=== PATIENT | male | born 2000 | race Caucasian/White ===

== ENCOUNTER 2018-07-26 06:43 | Emergency (ER) | payer OTHER ==
[~2018-07-26] VITALS: Ht 175.3 cm; Wt 70.5 kg
[2018-07-26 06:43] VITALS: BP 136/63
[2018-07-26] MEDS ORDERED: TRIA1OI TOP (07:14)
[2018-07-26] MEDS ORDERED: PRED20TA PO (07:14)
== END 2018-07-26 07:24 | disposition home or self-care (01) ==
LOC: M ED 06:43
DX: R21 Rash and other nonspecific skin eruption (principal); F17.210 Nicotine dependence, cigarettes, uncomplicated

== ENCOUNTER 2019-04-15 21:33 | Emergency (ER) | payer OTHER ==
[~2019-04-15] VITALS: Ht 170.2 cm; Wt 62.5 kg
[~2019-04-15 21:33] MED LIST: PRED20TA PO; TRIA1OI TOP
[2019-04-15] MEDS ORDERED: AMOX500C PO (21:42)
[2019-04-16] MEDS ORDERED: diphenhydrAMINE INJ 50MG/ML VIAL (J1200) IV ONE (00:30)
[2019-04-16] MEDS ORDERED: PRED20TA PO (00:30)
[2019-04-16] MEDS ORDERED: BENA25CA4 PO (00:30)
[2019-04-16] MEDS ORDERED: dexameTHASONE 20 MG/5 ML VIAL (J1100) IV ONE (00:30)
[2019-04-16 01:15] VITALS: BP 104/52
== END 2019-04-16 01:17 | disposition home or self-care (01) ==
LOC: M ED 21:33
DX: R21 Rash and other nonspecific skin eruption (principal); T36.0X5A Adverse effect of penicillins, initial encounter; X58.XXXA Exposure to other specified factors, initial encounter; Y92.89 Other specified places as the place of occurrence of the external cause; Z88.0 Allergy status to penicillin
CPT/HCPCS: 96374; 96375; 99283; J1100; J1200

== ENCOUNTER 2020-12-10 23:09 | Inpatient (IN) | payer OTHER ==
[~2020-12-10] VITALS: Ht 170.2 cm; Wt 61.6 kg
[~2020-12-10 23:09] MED LIST changes: +AMOX500C PO; +BENA25CA4 PO
[2020-12-11 01:44] LABS: HEMATOCRIT 44.9 % (42.0-52.0); HEMOGLOBIN 15.7 g/dl (13.5-17.5); MEAN CORPUSCULAR HEMOGLOBIN 31.7 pg (27.0-33.0); MEAN CORPUSCULAR VOLUME 90.5 fl (80.0-96.0); PLATELET COUNT, AUTOMATED 240 10^3/uL (150-450); RED BLOOD COUNT 4.96 10^6/uL (4.30-6.10); WHITE BLOOD COUNT 16.4 10^3/uL (4.0-10.0)
[2020-12-11 02:05] LABS: AMPHETAMINES LEVEL URINE NEGATIVE (NEGATIVE); BARBITURATES URINE NEGATIVE (NEGATIVE); BENZODIAZEPINES URINE NEGATIVE (NEGATIVE); CANNABINOIDS URINE NEGATIVE (NEGATIVE); COCAINE METABOLITE URINE NEGATIVE (NEGATIVE); METHADONE URINE NEGATIVE (NEGATIVE); OPIATES URINE NEGATIVE (NEGATIVE); PHENCYCLIDINE URINE NEGATIVE (NEGATIVE)
[2020-12-11 02:17] LABS: RSV AMPLIFICATION NEGATIVE (NEGATIVE)
[2020-12-11 02:33] LABS: ACETAMINOPHEN LEVEL < 2.0 UG/ML (10.0-30.0); ALBUMIN 4.5 GM/DL (3.2-5.2); ALT/SGPT 22 U/L (12-78); BILIRUBIN,DIRECT 0.1 MG/DL (0.0-0.2); BILIRUBIN,TOTAL 0.5 MG/DL (0.2-1.0); BLOOD UREA NITROGEN 11 MG/DL (7-18); CALCIUM LEVEL 9.6 MG/DL (8.5-10.1); CARBON DIOXIDE LEVEL 26 MEQ/L (21-32); CHLORIDE LEVEL 107 MEQ/L (98-107); CREATININE FOR GFR 0.84 MG/DL (0.70-1.30); ETHYL ALCOHOL (ETHANOL) < 0.003 % (0.000-0.010); GLOMERULAR FILTRATION RATE > 60.0 (>60); GLUCOSE, FASTING 86 MG/DL (70-100); SALICYLATE LEVEL 1.9 MG/DL (5.0-30.0); SODIUM LEVEL 141 MEQ/L (136-145); TOTAL PROTEIN 7.7 GM/DL (6.4-8.2)
[2020-12-11] MEDS ORDERED: ACETAMINOPHEN TAB 650MG DOSE (2X325MG) PO PRN (03:40)
[2020-12-11] MEDS ORDERED: MAALOX 30 ML SUSP *UDC PO PRN (03:40)
[2020-12-11] MEDS ORDERED: MOM 30ML SUSPENSION UDC PO PRN (03:40)
[2020-12-11 08:28] VITALS: BP 126/57
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
[2020-12-11] MEDS ORDERED: SERTRALINE HCL 50 MG TAB PO SCH (10:00)
[2020-12-11] MEDS: SERTRALINE HCL 50 MG TAB PO SCH (10:40)
[2020-12-11] MEDS ORDERED: HOME MED LIST COMPLETE! XX SCH (11:40)
[2020-12-11 16:16] VITALS: BP 117/59
--- NOTE | 2020-12-11 18:19 | HPEPDOC ---
General Date of Admission Dec 11, 2020 at 03:39 Date of Service: Dec 11, 2020 Attending Physician: GUZMAN MEDRANO MD Chief Complaint The patient is a 20-year-old male admitted with a reason for visit of Unspecified Depressive Disorder. 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 ED workup was grossly normal with a reactive leukocytosis, with otherwise normal electrolytes, renal function and negative tox screen. Medicine is now consulted for an H&P. Home Medications No Active Prescriptions or Reported Meds Allergies Coded Allergies: amoxicillin (Verified Allergy, Intermediate, Hives, 04/16/19) Past Medical History Medical History Schizophrenia Surgical History None Social History * Smoker: Denies, current smoker Alcohol: Denies Drugs: denies Recent Travel/Sick Contacts: Denies: Recent travel, Recent sick contacts Psychosocial History: Schizophrenia, Suicidal thoughts Active with ongoing discharge process No alcohol No illicit drug use No smoking A-FIB/CHADSVASC A-FIB History Current/History of A-Fib/PAF?: No Current PO Anticoag Therapy: No Age/Risk Factor Scoring CHADSVASC: CHADSVASC Response (Comments) Value Age Risk Factor Age < 65 years old 0 Gender Risk Factor Male 0 Hx of CHF No 0 Hx of HTN No 0 Hx of Stroke/TIA/or VTE No 0 Hx of Diabetes No 0 Hx of Vascular Disease No 0 Total 0 Treatment Treatment ordered: NONE Reason Anticoagulant not given: Not indicated/[id number] Review of Systems Constitutional: Denies: Chills, Fever, Night Sweats Eyes: Denies: Pain, Vision change ENT: Denies: Head Aches, Ear Pain, Dysphagia Skin: Denies: Rash, Lesions, Breakdown Pulmonary: Denies: Dyspnea, Cough Cardiovascular: Denies: Chest Pain, Palpitations, Orthopnea, Paroxysmal Noc. Dyspnea, Lt Headedness Gastrointestinal: Denies: Nausea, Vomiting, Abdominal Pain, Diarrhea Genitourinary: Denies: Dysuria, Frequency, Incontinence, Retention Hematologic: Denies: Bruising, Bleeding Excessively Endocrine: Denies: Polydipsia, Polyphagia, Polyuria, Heat Intolerance, Cold Intolerance, Other Endocrine Sx Musculoskeletal: Denies: Neck Pain, Back Pain, Joint Pain, Muscle Pain, Spasms Neurological: Denies: Weakness, Numbness, Change in speech, Confusion Psych: Reports: Depression, Thoughts of Self Harm Physical Examination General Exam: Positive: Alert, No Acute Distress Eye Exam: Positive: PERRLA, Conjunctiva & lids normal, EOMI; Negative: Sclera icteric ENT Exam: Positive: Atraumatic, Mucous membr. moist/pink, Pharynx Normal Neck Exam: Positive: Supple; Negative: JVD, thyromegaly Chest Exam: Positive: Clear to auscultation, Normal air movement Heart Exam: Positive: Rate Normal, Regular Rhythm, Normal S1, Normal S2; Negative: Murmurs, Rubs Abdomen Exam: Positive: Normal bowel sounds, Soft; Negative: Tenderness, Hepatospenomegaly Extremity Exam: Positive: Normal pulses; Negative: Clubbing, Cyanosis, Edema Skin Exam: Positive: Nl turgor and temperature; Negative: Breakdown, Lesion Neuro Exam: Positive: Normal Gait, Normal Speech, Cranial Nerves 3-12 NL, Reflexes 2+ Psych Exam: Positive: Oriented x 3 Vital Signs Vital Signs Date Time Temp Pulse Resp B/P (MAP) Pulse Ox O2 Delivery O2 Flow Rate FiO2 12/11/20 08:28 99.2 103 18 126/57 (80) 97 12/11/20 08:17 Room Air Laboratory Data Labs 24H Laboratory Tests 2 12/11/20 01:25: Nucleated Red Blood Cells % (auto) 0.0, Anion Gap 8, Glomerular Filtration Rate > 60.0, Calcium Level 9.6, Total Bilirubin 0.5, Direct Bilirubin 0.1, Aspartate Amino Transf (AST/SGOT) 19, Alanine Aminotransferase (ALT/SGPT) 22, Alkaline Phosphatase 56, Total Protein 7.7, Albumin 4.5, Albumin/Globulin Ratio 1.4, Thyroid Stimulating Hormone (TSH) 2.790, Salicylates Level 1.9L, Urine Opiates Screen NEGATIVE, Urine Methadone Screen NEGATIVE, Acetaminophen Level < 2.0L, Urine Barbiturates Screen NEGATIVE, Urine Phencyclidine Screen NEGATIVE, Urine Amphetamines Screen NEGATIVE, Urine Benzodiazepines Screen NEGATIVE, Urine Cocaine Metabolite Screen NEGATIVE, Urine Cannabinoids Screen NEGATIVE, Ethyl Alcohol Level < 0.003, Coronavirus (COVID-19)(PCR) NEGATIVE, Influenza Type A (RT-PCR) NEGATIVE, Influenza Type B (RT-PCR) NEGATIVE, Respiratory Syncytial Virus (PCR) NEGATIVE CBC/BMP Laboratory Tests 12/11/20 01:25 Assessment/Plan 20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 Medicine is now consulted for an H&P. Suicide attempt i/s/o depression i/s/o decompensated schizophrenia as well as psychosocial stressors: -Plan per primary psych team He is otherwise physically well without medical complaints. I will sign off at this time. Please reconsult for any medical concerns. Plan / VTE VTE Prophylaxis Ordered?: No VTE Exclusion Mechanical Proph: Low Risk for VTE VTE Exclusion Pharmacological: At Low Risk for VTE GUZMAN MEDRANO MD Dec 11, 2020 12:53
[2020-12-11] MEDS: risperiDONE 2 MG TAB PO SCH (21:45)
[2020-12-11] MEDS: traZODone 50 MG TAB PO PRN (21:45)
[2020-12-12 06:20] VITALS: BP 117/56
[2020-12-12] MEDS: SERTRALINE HCL 50 MG TAB PO SCH (09:14)
[2020-12-12 09:44] LABS: CHOLESTEROL RISK RATIO 2.094 (<5)
--- NOTE | 2020-12-12 14:40 | MHIPNPDOC ---
[facility] Progress Note Progress Note DATE OF SERVICE: 12/12/20 HISTORY: 20-year-old male with a history of schizophrenia admitted after a suicidal gesture. Was found by his who called police and had him escorted to hospital for treatment. Multiple stressors in life including being off of his current medications as well as undergoing a divorce with . In the process of a medical discharge from the [employer] which is also been an increased stressor as he does not have strong family support and has utilized the [employer] as his primary purpose in life up until recently. Interval history: Was started on sertraline and risperidone upon admission, denies having any side effects to medications at present. Reports that he feels somewhat better and that his thoughts are a little bit clear. States that he continues to hear auditory hallucinations of 2 people talking to him but that they seem less intense than the past. Denies current suicidal ideation. Discussed whether or not he should be attending group and stated that he was nervous about the idea but appeared to be more reassured after discussing purposes of group and how they might be beneficial to him. Requesting when he may be discharged from the unit. VITAL SIGNS: See below. NEW TEST RESULTS: See below. CURRENT MEDICATIONS: See below. MENTAL STATUS EXAMINATION: Patient is a 20-year old male, who is dressed in hospital clothing and calmly seated in a chair. Speech: Is quiet, slowed, spontaneous in nature, with regular rhythm. Language skills are intact. Thought processes including: Linear and coherent. Thought content: Focused on wanting to leave, anxious about possibly attending groups while hospitalized. Abstract reasoning, and computation: Intact. Description of associations: Linear. Description of abnormal or psychotic thoughts: Continues to endorse auditory porras llucination but reports that they are improving. Judgment: Fair. Insight: Poor. Orientation: X3. Recent and remote memory: Intact. Attention span and concentration: Intact. Mood: "A little better I think". Affect: Blunted, appeared tired today, generally congruent to stated mood. DIAGNOSES: Unspecified psychotic disorder Rule out schizophrenia per history Unspecified trauma and stressor related disorder Tobacco use disorder ASSESSMENT: Appears to be improving at present, continues require hospitalization for stabilization. Due to recent initiation of medications would recommend at present that no further changes are made to allow him time to adjust to the medications, may consider an increase in sertraline on Monday or Monday if he continues to not experience side effects. MANAGEMENT PLAN: Continue medications as prescribed. TIME SPENT: 15 minutes. Vital Signs Vital Signs Date Time Temp Pulse Resp B/P (MAP) Pulse Ox O2 Delivery O2 Flow Rate FiO2 12/12/20 06:20 96.8 77 16 117/56 (76) 99 Room Air Laboratory Data 24H Labs Laboratory Tests 2 12/12/20 08:35: Triglycerides Level 61, Total Cholesterol 111, LDL Cholesterol 46, Non-HDL Cholesterol (LDL + VLDL) 58, Total HDL Cholesterol 53, Cholesterol/HDL Ratio 2.094 Current Medications Current Medications Medications (Trade) Dose Ordered Sig/Iwona Route PRN Reason Start Time Stop Time Status Last Admin Dose Admin Acetaminophen (Tylenol Tab) 650 mg Q6HP PRN PO HEADACHE or MILD DISCOMFORT 12/11/20 03:40 Al Hydrox/Mg Hydrox/Simethicone (Mylanta) 30 ml Q4HP PRN PO HEARTBURN/INDIGESTION 12/11/20 03:40 Home Med (Home Med List Complete!) ASDIRECTED XX 12/11/20 11:40 12/11/20 11:44 DC Magnesium Hydroxide (Milk Of Magnesia) 30 ml DAILYPRN PRN PO CONSTIPATION 12/11/20 03:40 Risperidone (RisperDAL) 2 mg QHS PO 12/11/20 21:00 12/11/20 21:45 Sertraline HCl (Zoloft) 50 mg DAILY PO 12/11/20 09:00 12/12/20 09:14 Sertraline HCl (Zoloft) 50 mg DAILY PO 12/11/20 10:00 Cancel Trazodone HCl (Desyrel) 50 mg QHSP PRN PO INSOMNIA 12/11/20 03:40 12/11/20 21:45 Allergies Coded Allergies: amoxicillin (Verified Allergy, Intermediate, Hives, 04/16/19) LYNN MARLEY MD Dec 12, 2020 14:40
[2020-12-12 16:33] VITALS: BP 129/65
[2020-12-12] MEDS: risperiDONE 2 MG TAB PO SCH (21:21)
[2020-12-13 06:00] VITALS: BP 122/69
[2020-12-13] MEDS: SERTRALINE HCL 50 MG TAB PO SCH (09:14)
--- NOTE | 2020-12-13 12:56 | MHIPNPDOC ---
[facility] Progress Note Progress Note DATE OF SERVICE: 12/13/20 HISTORY: 20-year-old male with a history of schizophrenia admitted after a suicidal gesture. Was found by his who called police and had him escorted to hospital for treatment. Multiple stressors in life including being off of his current medications as well as undergoing a divorce with . In the process of a medical discharge from the [employer] which is also been an increased stressor as he does not have strong family support and has utilized the [employer] as his primary purpose in life up until recently. Interval history: Reports improved mood today, states that he has been sleeping well. Attended one of the groups, states that was a painting group. This enjoyable I have spent time speaking with the watershed coordinator on [place] to. He remains hopeful about discharge early in the week, as looking forward to being released from the hospital. We discussed the auditory hallucinations he been having prior to admission, he states that those were last heard several months ago and not been more recent. He did not appear internally preoccupied or to have any sort of thought blocking while talking today. Overall he appears to be in good spirits and feels that the medications are helpful so far. VITAL SIGNS: See below. NEW TEST RESULTS: See below. CURRENT MEDICATIONS: See below. MENTAL STATUS EXAMINATION: Patient is a 20-year old male, who is dressed in hospital clothing, seen laying in bed, awoke readily when his name was called. Speech: Is quiet, slowed, spontaneous in nature, with regular rhythm. Language skills are intact. Thought processes including: Linear and coherent. Thought content: Found the groups for somewhat enjoyable, continues to be interested in when he will be able to leave the unit. Abstract reasoning, and computation: Intact. Description of associations: Linear. Description of abnormal or psychotic thoughts: Denies auditory hallucinations today Judgment: Fair. Insight: Poor. Orientation: X3. Recent and remote memory: Intact. Attention span and concentration: Intact. Mood: "I feel good, I even went to a group today". Affect: Blunted, appeared tired today, generally congruent to stated mood. DIAGNOSES: Unspecified psychotic disorder Rule out schizophrenia per history Unspecified trauma and stressor related disorder Tobacco use disorder ASSESSMENT: Appears to be improving at present, continues require hospitalization for stabilization. Due to recent initiation of medications would recommend at present that no further changes are made to allow him time to adjust to the medications, may consider an increase in sertraline on Monday or Monday if he continues to not experience side effects. MANAGEMENT PLAN: Continue medications as prescribed. TIME SPENT: 15 minutes. Vital Signs Vital Signs Date Time Temp Pulse Resp B/P (MAP) Pulse Ox O2 Delivery O2 Flow Rate FiO2 12/13/20 06:00 97.9 68 14 122/69 (86) 100 Room Air Current Medications Current Medications Medications (Trade) Dose Ordered Sig/Iwona Route PRN Reason Start Time Stop Time Status Last Admin Dose Admin Acetaminophen (Tylenol Tab) 650 mg Q6HP PRN PO HEADACHE or MILD DISCOMFORT 12/11/20 03:40 Al Hydrox/Mg Hydrox/Simethicone (Mylanta) 30 ml Q4HP PRN PO HEARTBURN/INDIGESTION 12/11/20 03:40 Home Med (Home Med List Complete!) ASDIRECTED XX 12/11/20 11:40 12/11/20 11:44 DC Magnesium Hydroxide (Milk Of Magnesia) 30 ml DAILYPRN PRN PO CONSTIPATION 12/11/20 03:40 Risperidone (RisperDAL) 2 mg QHS PO 12/11/20 21:00 12/12/20 21:21 Sertraline HCl (Zoloft) 50 mg DAILY PO 12/11/20 09:00 12/13/20 09:14 Sertraline HCl (Zoloft) 50 mg DAILY PO 12/11/20 10:00 Cancel Trazodone HCl (Desyrel) 50 mg QHSP PRN PO INSOMNIA 12/11/20 03:40 12/11/20 21:45 Allergies Coded Allergies: amoxicillin (Verified Allergy, Intermediate, Hives, 04/16/19) LYNN MARLEY MD Dec 13, 2020 12:56
[2020-12-13 16:45] VITALS: BP 120/67
[2020-12-13] MEDS: traZODone 50 MG TAB PO PRN (20:41)
[2020-12-13] MEDS: risperiDONE 2 MG TAB PO SCH (20:41)
[2020-12-14 07:17] VITALS: BP 119/58
[2020-12-14] MEDS: SERTRALINE HCL 50 MG TAB PO SCH (08:16)
--- NOTE | 2020-12-14 12:19 | MHIPNPDOC ---
[facility] Progress Note Progress Note DATE OF SERVICE: 12/14/20 HISTORY: 20-year-old male with a history of schizophrenia admitted after a suicide attempt that was interrupted by his who then called the police bring him to the hospital. He was also reportedly holding a knife to himself which she removed. Has multiple stressors including poor compliance with medications which she stopped months ago, pending divorce with , medical discharge from . Interval history: Went to 1 group yesterday per chart review, reports tolerating medications without side effects and refuses to have risperidone increased, despite continuing to endorse delusions with regards to career with supporting collateral from . Denies any side effects from medications, will increase the sertraline for mood as he continues to appear withdrawn, low energy, sullen. Sleep is "okay". Continues to ask about discharge was made aware that we evaluate on a day-to-day basis measures progress and establish a safe discharge plan before he leaves. No acute physical symptoms reported. VITAL SIGNS: See below. NEW TEST RESULTS: See below. CURRENT MEDICATIONS: See below. MENTAL STATUS EXAMINATION: Patient is a 20-year old male, who is dressed in hospital clothing, seen laying in bed, awoke readily when his name was called. Speech: Slowed, spontaneous, decreased amount Language skills are intact. Thought processes including: Linear, coherent Thought content: Found the groups for somewhat enjoyable, continues to be interested in when he will be able to leave the unit. Abstract reasoning, and computation: Intact. Description of associations: Linear. Description of abnormal or psychotic thoughts: Denies psychotic symptoms, but continues to have likely delusions with regards to campaign Judgment: Improving Insight: Poor. Orientation: X3. Recent and remote memory: Intact. Attention span and concentration: Intact. Mood: "Feeling better". Affect: Somnolent, blunted, sullen, withdrawn, mildly dysthymic DIAGNOSES: Schizophrenia per history Unspecified trauma and stressor related disorder Tobacco use disorder ASSESSMENT: Reports some improvements on medications without side effects, will increase sertraline to 100 mg p.o. daily for mood, continues to be somewhat sullen, withdrawn. Continues to have delusions related to the , denies auditory hallucinations, does not want to be on an injectable Risperdal Consta despite explaining common and rare side effects as well as benefits versus alternatives versus risk of noncompliance and worsening of psychotic symptoms given his history. I reviewed agreeable to continue on Risperdal 2 mg nightly. MANAGEMENT PLAN: Continue Risperdal 2 mg nightly, increase sertraline to 100 mg daily for low mood, energy. Continues to ask about discharge, made aware will need extended stay for stabilization of symptoms to ensure safety. Was encouraged to attend groups. Education given regarding medications. TIME SPENT: 20 minutes. Vital Signs Vital Signs Date Time Temp Pulse Resp B/P (MAP) Pulse Ox O2 Delivery O2 Flow Rate FiO2 12/14/20 07:17 98.7 79 20 119/58 (78) 96 Room Air Current Medications Current Medications Medications (Trade) Dose Ordered Sig/Iwona Route PRN Reason Start Time Stop Time Status Last Admin Dose Admin Acetaminophen (Tylenol Tab) 650 mg Q6HP PRN PO HEADACHE or MILD DISCOMFORT 12/11/20 03:40 Al Hydrox/Mg Hydrox/Simethicone (Mylanta) 30 ml Q4HP PRN PO HEARTBURN/INDIGESTION 12/11/20 03:40 Home Med (Home Med List Complete!) ASDIRECTED XX 12/11/20 11:40 12/11/20 11:44 DC Magnesium Hydroxide (Milk Of Magnesia) 30 ml DAILYPRN PRN PO CONSTIPATION 12/11/20 03:40 Risperidone (RisperDAL) 2 mg QHS PO 12/11/20 21:00 12/13/20 20:41 Sertraline HCl (Zoloft) 50 mg DAILY PO 12/11/20 09:00 12/14/20 08:16 Sertraline HCl (Zoloft) 50 mg DAILY PO 12/11/20 10:00 Cancel Trazodone HCl (Desyrel) 50 mg QHSP PRN PO INSOMNIA 12/11/20 03:40 12/13/20 20:41 Allergies Coded Allergies: amoxicillin (Verified Allergy, Intermediate, Hives, 04/16/19) MICHAEL MALIK MD Dec 14, 2020 12:18
[2020-12-14 17:49] VITALS: BP 133/68
[2020-12-14] MEDS: risperiDONE 2 MG TAB PO SCH (20:02)
[2020-12-14] MEDS: traZODone 50 MG TAB PO PRN (20:02)
[2020-12-15 06:00] VITALS: BP 111/51
[2020-12-15] MEDS: SERTRALINE 100 MG TAB PO SCH (08:42)
--- NOTE | 2020-12-15 13:57 | MHIPNPDOC ---
[facility] Progress Note Progress Note DATE OF SERVICE: 12/15/20 HISTORY: 20-year-old male with a history of schizophrenia admitted after a suicide attempt that was interrupted by his who then called the police bring him to the hospital. He was also reportedly holding a knife to himself which she removed. Has multiple stressors including poor compliance with medications which she stopped months ago, pending divorce with , medical discharge from . Interval history: Charts reviewed, has been going to more groups at least 2 daily over the last 2 days. Reports mood is improved since increasing sertraline to 100 mg daily. Denies suicidal ideations, on discussion of past delusions reported by girlfriend, patient states " I know he never went to [place], not sure why I was thinking that", also endorses coming to terms with pending divorce which she reports still moving forward. States " I had to come with to the reality of the situation", states he has somewhat good mood, reports not hearing voices since last week. States he enjoyed yoga today, wants to get home to his dog. Reports he talked to his this morning and that she reported that she is happy he is getting treatment on the inpatient unit. Reports getting adequate sleep and has been eating normal amounts, no acute physical complaints. Denies medication side effects. States he continues to not want to get an injection of Risperdal due to fear of needles. VITAL SIGNS: See below. NEW TEST RESULTS: See below. CURRENT MEDICATIONS: See below. MENTAL STATUS EXAMINATION: Patient is a 20-year old male, who is dressed in hospital clothing, seen morning social milieu, interviewed in private interview room, hygiene is improved, appears stated age, eye contact still somewhat avoidant. Speech: Mildly slowed, spontaneous, normal amount, fluid Language skills are intact. Thought processes including: Linear, coherent, goal-directed Thought content: Denies suicidal thoughts today, feels mood is somewhat improved Abstract reasoning, and computation: Intact. Description of associations: Linear. Description of abnormal or psychotic thoughts: Denies psychotic symptoms, but continues to have likely delusions with regards to campaign Judgment: Improving Insight: Fair, improving Orientation: X3. Recent and remote memory: Intact. Attention span and concentration: Intact. Mood: "Somewhat good mood, woke up today feeling better". Affect: Mildly dysthymic, mildly constricted, appropriate, mood congruent DIAGNOSES: Schizophrenia per history Unspecified trauma and stressor related disorder Tobacco use disorder ASSESSMENT: Patient requires continued stay, continues to have some depressed mood, reports an improvement in psychotic symptoms. Possible discharge on or Monday if continues to improve. Denies medication side effects. MANAGEMENT PLAN: Continue sertraline 100 mg p.o. daily for mood, continue Risperdal 2 mg nightly. Was encouraged to attend groups. Education given regarding psychotic symptoms and need for medication compliance. TIME SPENT: 15 minutes. Vital Signs Vital Signs Date Time Temp Pulse Resp B/P (MAP) Pulse Ox O2 Delivery O2 Flow Rate FiO2 12/15/20 08:57 Room Air 12/15/20 06:00 98.7 75 14 111/51 (71 96 Current Medications Current Medications Medications (Trade) Dose Ordered Sig/Iwona Route PRN Reason Start Time Stop Time Status Last Admin Dose Admin Acetaminophen (Tylenol Tab) 650 mg Q6HP PRN PO HEADACHE or MILD DISCOMFORT 12/11/20 03:40 Al Hydrox/Mg Hydrox/Simethicone (Mylanta) 30 ml Q4HP PRN PO HEARTBURN/INDIGESTION 12/11/20 03:40 Home Med (Home Med List Complete!) ASDIRECTED XX 12/11/20 11:40 12/11/20 11:44 DC Magnesium Hydroxide (Milk Of Magnesia) 30 ml DAILYPRN PRN PO CONSTIPATION 12/11/20 03:40 Risperidone (RisperDAL) 2 mg QHS PO 12/11/20 21:00 12/14/20 20:02 Sertraline HCl (Zoloft) 50 mg DAILY PO 12/11/20 09:00 12/14/20 12:09 DC 12/14/20 08:16 Sertraline HCl (Zoloft) 50 mg DAILY PO 12/11/20 10:00 Cancel Sertraline HCl (Zoloft) 100 mg DAILY PO 12/15/20 09:00 12/15/20 08:42 Trazodone HCl (Desyrel) 50 mg QHSP PRN PO INSOMNIA 12/11/20 03:40 12/14/20 20:02 Allergies Coded Allergies: amoxicillin (Verified Allergy, Intermediate, Hives, 04/16/19) MICHAEL MALIK MD Dec 15, 2020 13:57
[2020-12-15 19:26] VITALS: BP 124/64
[2020-12-15] MEDS: risperiDONE 2 MG TAB PO SCH (20:12)
[2020-12-16 06:00] VITALS: BP 113/56
[2020-12-16] MEDS: SERTRALINE 100 MG TAB PO SCH (08:29)
--- NOTE | 2020-12-16 15:11 | MHIPNPDOC ---
[facility] Progress Note Progress Note DATE OF SERVICE: 12/16/20 HISTORY: 20-year-old male with a history of schizophrenia admitted after a suicide attempt that was interrupted by his who then called the police bring him to the hospital. He was also reportedly holding a knife to himself which she removed. Has multiple stressors including poor compliance with medications which she stopped months ago, pending divorce with , medical discharge from . Interval history: Charts reviewed, has been going to all groups, feels mood is significantly improved since continued on medications, including Risperdal, denies any acute physical symptoms or side effects from medications. Reports has been talking to his about his situation. Sleep, appetite and energy are all improved. Denies any suicidal ideation, intent or plan. Denies any auditory or visual hallucinations, denies any magi. Objects to harm himself between rooms weapons removed from home. Feels future oriented and hopeful possibly return home tomorrow, with the understanding of establishing safety plan was on time to ensure medications are providing benefit due to severity of suicide attempt on admission. VITAL SIGNS: See below. NEW TEST RESULTS: See below. CURRENT MEDICATIONS: See below. MENTAL STATUS EXAMINATION: Patient is a 20-year old male, who is dressed in hospital clothing, seen morning social milieu interacting with others, interviewed in private interview room, hygiene is improved, appears stated age, eye contact still somewhat avoidant. Speech: Mildly slowed, spontaneous, normal amount, fluid Language skills are intact. Thought processes including: Linear, coherent, goal-directed Thought content: Denies suicidal thoughts today, feels mood is somewhat improved Abstract reasoning, and computation: Intact. Description of associations: Linear. Description of abnormal or psychotic thoughts: Denies psychotic symptoms, but continues to have likely delusions with regards to campaign Judgment: Improving Insight: Fair, improving Orientation: X3. Recent and remote memory: Intact. Attention span and concentration: Intact. Mood: "Somewhat good mood, woke up today feeling better". Affect: Mildly dysthymic, mildly constricted, appropriate, mood congruent DIAGNOSES: Schizophrenia per history Unspecified trauma and stressor related disorder Tobacco use disorder ASSESSMENT: Patient requires continued stay, continues to have some depressed mood, reports an improvement in psychotic symptoms. Possible discharge on or Monday if continues to improve. Denies medication side effects. MANAGEMENT PLAN: Continue sertraline 100 mg p.o. daily for mood, continue Risperdal 2 mg nightly. Was encouraged to attend groups. Education given regarding psychotic symptoms and need for medication compliance. TIME SPENT: 15 minutes. Vital Signs Vital Signs Date Time Temp Pulse Resp B/P (MAP) Pulse Ox O2 Delivery O2 Flow Rate FiO2 12/16/20 10:24 Room Air 12/16/20 06:00 98.0 85 16 113/56 (75) 97 Current Medications Current Medications Medications (Trade) Dose Ordered Sig/Iwona Route PRN Reason Start Time Stop Time Status Last Admin Dose Admin Acetaminophen (Tylenol Tab) 650 mg Q6HP PRN PO HEADACHE or MILD DISCOMFORT 12/11/20 03:40 Al Hydrox/Mg Hydrox/Simethicone (Mylanta) 30 ml Q4HP PRN PO HEARTBURN/INDIGESTION 12/11/20 03:40 Home Med (Home Med List Complete!) ASDIRECTED XX 12/11/20 11:40 12/11/20 11:44 DC Magnesium Hydroxide (Milk Of Magnesia) 30 ml DAILYPRN PRN PO CONSTIPATION 12/11/20 03:40 Risperidone (RisperDAL) 2 mg QHS PO 12/11/20 21:00 12/15/20 20:12 Sertraline HCl (Zoloft) 50 mg DAILY PO 12/11/20 09:00 12/14/20 12:09 DC 12/14/20 08:16 Sertraline HCl (Zoloft) 50 mg DAILY PO 12/11/20 10:00 Cancel Sertraline HCl (Zoloft) 100 mg DAILY PO 12/15/20 09:00 12/16/20 08:29 Trazodone HCl (Desyrel) 50 mg QHSP PRN PO INSOMNIA 12/11/20 03:40 12/14/20 20:02 Allergies Coded Allergies: amoxicillin (Verified Allergy, Intermediate, Hives, 04/16/19) MICHAEL MALIK MD Dec 16, 2020 15:11
[2020-12-16 19:29] VITALS: BP 128/69
[2020-12-16] MEDS: risperiDONE 2 MG TAB PO SCH (20:20)
[2020-12-16] MEDS: traZODone 50 MG TAB PO PRN (20:20)
[2020-12-17 06:26] VITALS: BP 133/77
[2020-12-17] MEDS: SERTRALINE 100 MG TAB PO SCH (08:21)
[2020-12-17] MEDS ORDERED: TRAZ-252 PO (09:13)
[2020-12-17] MEDS ORDERED: ZOLO100T PO (09:13)
[2020-12-17] MEDS ORDERED: RISP-9 PO (09:13)
--- NOTE | 2020-12-17 13:02 | MHDSPDOC ---
[facility] Discharge Summary Discharge Summary DATE OF ADMISSION: Dec 11, 2020 at 03:39 DATE OF DISCHARGE: Dec 17, 2020 at 11:46 Discharge diagnoses: Schizophrenia per history Unspecified trauma and stressor related disorder Tobacco use disorder Reason for admission:20-year-old male with a history of schizophrenia admitted after a suicide attempt that was interrupted by his who then called the police bring him to the hospital. He was also reportedly holding a knife to himself which she removed. Has multiple stressors including poor compliance with medications which she stopped months ago, pending divorce with , medical discharge from . Vital signs: See below Consultants involved: See medical H&P by hospitalist Treatment and progress on the unit: Patient was admitted to the [facility] 9.39 legal status and was afforded the following treatment modalities: 1. Individual therapy 2. Group therapy 3. Medication management 4. Milieu therapy 5. Safe environment Hospital course: Patient was admitted to the [facility] on a 9.39 legal status. Was medically cleared prior to coming up to the [facility]. Upon admission patient reported that he was no longer having suicidal thinking, but had delusions of being deployed in [place] and somewhat disorganized thought process, was concerned for him and his safety, collateral was obtained from her, she reported he had numerous delusions about going to [place], hearing people talking in his head and reported a lot of the symptoms worsen when he stopped taking his medications, also confirmed continuation of divorce. Patient was started on Risperdal 2 mg nightly, delusions subsided, no longer endorsed having been in the rack or hearing any voices or other hallucinations, was also started on sertraline which was titrated up to 100 mg with good effect reported that he no longer had feelings of depression that were significant compared to prior to admission also reported he come to terms with divorce and denied any suicidal ideations prior to discharge. Reportedly per continues to be proceeding with divorce but will have him home in the meantime and safety plan was established on discharge with all things he could harm himself with in the home removed including ropes, weapons, knives or any other objects he could harm himself with. Patient found medications beneficial and tolerated them well. Denies mood anxiety and intrusive thoughts which improved with treatment. Patient attended groups daily during stay. Patient symptoms improved with treatment. On day of discharge patient denied depression, anxiety, insomnia, suicidal or homicidal ideations intent or plan, hallucinations, delusions. Patient was discharged home with follow-up. Patient felt safe for discharge. Was offered continued stay on a voluntary admission but refused. Discharge assessment: On today's interview patient is alert and oriented, dressed appropriately. Hygiene and grooming is well-kept. Eye contact significantly improved, hygiene is improved, is goal and future oriented wanting to return home and make plans for after being discharged in the , is also reported to be agreeable to continuing with divorce and coming to terms with his situation and planning for the future, wants to remain friends with her. Does smile at times and is full affect, and is pleasant and engaged on interview. Denies depression and anxiety. Denies suicidal homicidal ideation, intent or planning. Denies and is not observed with magi or psychotic symptoms of delusions, hallucinations, bizarre thinking, obsessions, paranoia, ruminations, illogical thoughts, flight of ideas or having poor insight or judgment. Patient has normal mentation, declines further hospitalization of voluntary status and meets criteria for discharge today, patient encouraged to return the hospital if symptoms worsen or change and encouraged to call unit if they feel they need provider's questions to be answered or help with medications or care. Nursing evaluation of suicide negative prior to discharge. Mental status: Patient is a 20-year old male, who is dressed in hospital clothing, seen morning social milieu interacting with others, interviewed in private interview room, hygiene is improved, appears stated age, eye contact is improved Speech: Mildly slowed, spontaneous, normal amount, fluid Language skills are intact. Thought processes including: Linear, coherent, goal-directed Thought content: Denies suicidal ideation, intent or plan. Denies homicidal ideation intent or plan. Abstract reasoning, and computation: Intact. Description of associations: Normal Description of abnormal or psychotic thoughts: Denies psychotic symptoms, no longer has delusions related to [place] campaign Judgment: Improving Insight: Fair, improving Orientation: X3. Recent and remote memory: Intact. Attention span and concentration: Intact. Mood: "Feeling way better". Affect: Euthymic, more bright, full, appropriate, mood congruent Medications on discharge: -see medication reconciliation: CSSRS on discharge: Wish to be : No nonspecific active suicidal thoughts: No lifetime attempts: 0 interrupted attempts: 1 time prior to this admission aborted attempts: 0 preparatory acts or behavior: None, denies have been planning to prepare for suicide attempt for an extended period of time were done research Taking into consideration safety state, status, modifiable, non-modifiable risk factors patient is at low risk on discharge for suicide according to [place] suicide evaluation. PLAN/FOLLOWUP ARRANGEMENTS: Follow Up Care Education Label * Mental Health Appt 1 * Mental Health 1st Embedded BH * Established With This Provider Yes * Additional information CLINIC/DIV PROVIDER DATE/TIME DTL CODES STATUS ===== 1ST BCT EB CLINIC/1BCT Vandana FUENTES [id number] FTR/30 PENDING Arrive 15 min early 1ST BCT EB CLINIC/1BCT MOSES,NELSON [id number]@1301 FTR/60 PENDING Arrive 15 min early 1ST BCT EB CLINIC/1BCT MOSES,NELSON [id number]@1400 FTR/60 PENDING 1ST BCT EB CLINIC/1BCT MOSES,NELSON [id number]@0901 FTR/60 PENDING Arrive 15 min early 1ST BCT EB CLINIC/1BCT FUENTESVandana [id number]@1430 FTR/30 PENDING Arrive 15 min early 1ST BCT EB CLINIC/1BCT MOSES,NELSON [id number]@1500 FTR/60 PENDING Arrive 15 min early 1ST BCT EB CLINIC/1BCT MOSES,NELSON [id number]@1500 FTR/60 PENDING Arrive 15 min early 1ST BCT EB CLINIC/1BCT MOSES,NELSON [id number]@1500 FTR/60 PENDING Arrive 15 min early The amount of time spent in the coordination of care for this patient was approximately 37 minutes. ETOH/Disorder Med Rx ETOH/DRUG DISORDER RX: Offrd @ d/c & pt refused, N/A Vital Signs/I&Os Vital Signs Date Time Temp Pulse Resp B/P (MAP) Pulse Ox O2 Delivery O2 Flow Rate FiO2 12/17/20 09:31 Room Air 12/17/20 06:26 99.1 60 16 133/77 (95) 98 Medications Scheduled Risperidone (Risperidone) 2 Mg Tablet, 2 MG PO QHS for psychosis, #7 Sertraline Hcl (Zoloft) 100 Mg Tablet, 100 MG PO DAILY for mood, #7 Scheduled PRN Trazodone HCl (Trazodone HCl) 50 Mg Tablet, 50 MG PO QHSP PRN for INSOMNIA, #7 Allergies Coded Allergies: amoxicillin (Verified Allergy, Intermediate, Hives, 04/16/19) MICHAEL MALIK MD Dec 17, 2020 13:02
== END 2020-12-17 11:46 | disposition home or self-care (01) | DRG 885 ==
LOC: M ED 23:09 → M ED INP 12-11 03:39 → M PSY 12-11 08:22
PROVIDERS: ADMIT Student in an Organized Health Care Education/Training Program; ATTEND Student in an Organized Health Care Education/Training Program
DX: F20.9 Schizophrenia, unspecified (principal); R45.851 Suicidal ideations; F43.9 Reaction to severe stress, unspecified; F17.210 Nicotine dependence, cigarettes, uncomplicated; Z91.82 Personal history of military deployment; Z91.14 Patient's other noncompliance with medication regimen; Z63.5 Disruption of family by separation and divorce; M25.561 Pain in right knee; G89.29 Other chronic pain; Z20.822 Contact with and (suspected) exposure to COVID-19; Z79.899 Other long term (current) drug therapy; Z88.1 Allergy status to other antibiotic agents; Z56.2 Threat of job loss

== ENCOUNTER → 2021-02-17 | Outpatient (REF) | payer OTHER ==
[~2021-02-17] MED LIST changes: +RISP-9 PO; +TRAZ-252 PO; +ZOLO100T PO
[2021-02-17 13:17] LABS: SEMEN APPEARANCE OPAQUE (OPAQUE); SEMEN VISCOSITY LIQUID (LIQUID); SEMEN VOLUME 3.1 ml (2.0-5.0)
[2021-02-17 13:18] LABS: SPERM CONCENTRATION 76.8 M/ml (>=15.0); WBC CONCENTRATION <=1 M/ml (<=1 M/ml)
== END ==
LOC: M LAB REF 13:10
PROVIDERS: ATTEND Obstetrics & Gynecology
DX: N46.8 Other male infertility (principal)